=== PATIENT | female | born 1975 | race Caucasian/White ===

== ENCOUNTER → 2019-01-23 | Outpatient (CLI) | payer BC ==
--- NOTE | 2019-01-23 14:29 | Diagnostic Imaging Report ---
INDICATION: Superficial bump around the right areola. TECHNIQUE: Sonographic interrogation of the area of bump in the region of the right areola was performed. FINDINGS: No sonographic abnormality is seen. No solid or cystic mass is identified. No fluid collection or abscess is identified. IMPRESSION: No sonographic abnormality is detected. ACR BI-RADS Category 1: Negative. Dictated by: Dictated on workstation # [id number]
== END ==
LOC: RAD 13:01
PROVIDERS: ATTEND Nurse Practitioner Family
DX: N63.10 Unspecified lump in the right breast, unspecified quadrant (principal); N61.0 Mastitis without abscess